=== PATIENT | male | born 1995 | race Two or more races ===

== ENCOUNTER 2016-11-20 13:47 | Emergency (ER) | payer SELFPAY ==
[~2016-11-20] VITALS: Ht 180.3 cm; Wt 128.0 kg
[2016-11-20 19:53] VITALS: BP 123/56
== END 2016-11-20 20:06 | disposition home or self-care (01) ==
LOC: ER 15:15
DX: S93.402A Sprain of unspecified ligament of left ankle, initial encounter (principal); F17.200 Nicotine dependence, unspecified, uncomplicated; F12.10 Cannabis abuse, uncomplicated; X58.XXXA Exposure to other specified factors, initial encounter; Y93.89 Activity, other specified; Y92.89 Other specified places as the place of occurrence of the external cause; Y99.8 Other external cause status
CPT/HCPCS: 73610; 73630; 99284; Z7610